=== PATIENT | female | born 1975 | race African-American/Black ===

== ENCOUNTER 2025-04-27 23:05 | Emergency (ER) | payer MEDICAID ==
[~2025-04-27] VITALS: Ht 162.6 cm; Wt 150.0 kg
[2025-04-27 23:20] VITALS: O2SAT 99
[2025-04-28 01:08] LABS: BASOPHILS % 1.2 % (0.0-2.0); EOSINOPHILS % 0.9 % (0.0-5.0); HEMATOCRIT. 30.6 % (36.0-48.0); HEMOGLOBIN. 9.0 g/dL (12.0-16.0); LYMPHOCYTES % 31.0 % (20.0-50.0); MEAN PLATELET VOLUME 7.5 fl (7.4-10.4); MONOCYTES % 14.4 % (2.0-8.0); NEUTROPHILS % 52.5 % (40.0-76.0); PLATELET 306 x1000/uL (130-400); RED BLOOD CELL COUNT 3.67 mill/uL (4.2-5.4); RED CELL DISTRIBUTION WIDTH 18.1 % (11.6-14.6)
[2025-04-28 01:22] LABS: CREATININE 0.7 mg/dL (0.6-1.0); UREA NITROGEN BLOOD 8 mg/dL (9-23)
[2025-04-28 01:23] LABS: ETHANOL BLOOD < 10 mg/dL (<10)
[2025-04-28 01:30] LABS: B-HCG QUANTITATIVE < 1 mIU/mL (<6)
[2025-04-28] MEDS: HALOPERIDOL LACTATE 5MG/ML VIAL IM ONE (01:35)
[2025-04-28] MEDS: DIPHENHYDRAMINE 50MG/ML VIAL IM ONE (01:35)
[2025-04-28 01:46] LABS: HCG SCREEN NEGATIVE
[2025-04-28 01:53] LABS: *AMPHETAMINES SCREEN URINE NEGATIVE (NEGATIVE); *BARBITURATES SCREEN URINE NEGATIVE (NEGATIVE); *BENZODIAZEPINES SCREEN URINE NEGATIVE (NEGATIVE); *COCAINE SCREEN URINE NEGATIVE (NEGATIVE); CANNABINOID URINE SCREEN NEGATIVE (NEGATIVE); ECSTASY MDMA SCREEN URINE NEGATIVE (NEGATIVE); METHADONE URINE SCREEN NEGATIVE (NEGATIVE); OPIATES URINE SCREEN NEGATIVE (NEGATIVE); PHENCYCLIDINE URINE SCREEN NEGATIVE (NEGATIVE)
[2025-04-28] MEDS: OLANZAPINE 10 MG/VIAL IM ONE (02:05)
[2025-04-28 03:05] LABS: CLARITY URINE CLEAR (CLEAR); COLOR URINE YELLOW (YELLOW); GLUCOSE URINE NEGATIVE (NEGATIVE); KETONES URINE NEGATIVE (NEGATIVE); PH URINE 7.5 (4.5-8.0); PROTEIN URINE NEGATIVE (NEGATIVE); SPECIFIC GRAVITY URINE 1.010 (1.005-1.030)
[2025-04-28 03:06] LABS: NITRITE URINE NEGATIVE (NEGATIVE); OCCULT BLOOD URINE 1+ (NEGATIVE)
[2025-04-28 03:07] LABS: LEUKOCYTE ESTERASE URINE NEGATIVE (NEGATIVE); UROBILINOGEN URINE 1.0 E.U./dL (0.2-1.0)
[2025-04-28 08:10] LABS: BACTERIA URINE NONE SEEN; RBC URINE 0-2 /hpf (0-2); WBC URINE NONE SEEN /hpf (0-2)
[2025-04-28 11:05] VITALS: BP 127/69; PULSE 78; RESP 18; TEMP 36.8; O2SAT 100
== END 2025-04-28 11:26 | disposition home or self-care (01) ==
LOC: ER 23:05 → EDBD 23:05 → ER 04-28 11:26
DX: F84.0 Autistic disorder (principal); R10.20 Pelvic and perineal pain unspecified side; Z79.899 Other long term (current) drug therapy; Z20.822 Contact with and (suspected) exposure to COVID-19
CPT/HCPCS: 99291; 80305; 80048; 81003; 80307; 80329; 80320; 84703; 84702; 85025; 36415; 76830; 76856; 96372; J3490; J1200; J1630; G0480